=== PATIENT | male | born 1980 | race American Indian/Alaskan Native ===

== ENCOUNTER 2018-11-09 09:58 | Emergency (ER) | payer SELFPAY ==
[2018-11-09 10:09] VITALS: BP 137/85
[2018-11-09] MEDS ORDERED: ULTRAM PO ONE (10:36)
--- NOTE | 2018-11-09 10:41 | Emergency Department Report ---
ED General Adult HPI - General Chief complaint: Back Pain/Injury Stated complaint: BACK PAIN Time Seen by Provider: 11/09/18 10:14 Source: patient Mode of arrival: Ambulatory Limitations: No Limitations - History of Present Illness Initial comments: Patient presents immersed for the chief complaint of lower back pain. Patient states that his pain started after lifting a heavy object at work and umbilical August. Since that time he is followed up with occupational health at [facility] and went through physical therapy and had MRI done on 10/08/2019 and was cleared for work. His MRI showed that he had a pre-existing condition of his back thus he was released from therapy. Patient denies any issues with his bladder or stool. Patient is here because he needs some pain relief. -: Gradual Location: back Radiation: non-radiation Severity scale (0 -10): 5 Quality: aching Consistency: constant Improves with: none Worsens with: none Associated Symptoms: denies other symptoms Treatments Prior to Arrival: none - Related Data Previous Rx's Medication Instructions Recorded Last Taken Type Ibuprofen [Motrin] 800 mg PO Q8HR PRN #24 tablet 11/09/18 Unknown Rx Prednisone [predniSONE 10 mg 10 mg PO .TAPER #1 tab.ds.pk 11/09/18 Unknown Rx (6-Day Pack, 21 Tabs)] traMADol [Ultram] 50 mg PO Q6HR PRN #24 tablet 11/09/18 Unknown Rx Allergies Allergy/AdvReac Type Severity Reaction Status Date / Time No Known Allergies Allergy Unverified 11/09/18 10:09 ED Review of Systems ROS: Stated complaint: BACK PAIN Other details as noted in HPI Comment: All other systems reviewed and negative Constitutional: denies: chills, fever Eyes: denies: eye pain, eye discharge, vision change ENT: denies: ear pain, throat pain Respiratory: denies: cough, shortness of breath, wheezing Cardiovascular: denies: chest pain, palpitations Endocrine: no symptoms reported Gastrointestinal: denies: abdominal pain, nausea, diarrhea Genitourinary: denies: urgency, dysuria Musculoskeletal: back pain. denies: joint swelling, arthralgia Skin: denies: rash, lesions Neurological: denies: headache, weakness, paresthesias Psychiatric: denies: anxiety, depression Hematological/Lymphatic: denies: easy bleeding, easy bruising ED Past Medical Hx - Past Medical History Previous Medical History?: No - Surgical History Past Surgical History?: No - Social History Smoking Status: Never Smoker Substance Use Type: None - Medications Home Medications: Home Medications Medication Instructions Recorded Confirmed Last Taken Type Ibuprofen [Motrin] 800 mg PO Q8HR PRN #24 tablet 11/09/18 Unknown Rx Prednisone [predniSONE 10 mg 10 mg PO .TAPER #1 tab.ds.pk 11/09/18 Unknown Rx (6-Day Pack, 21 Tabs)] traMADol [Ultram] 50 mg PO Q6HR PRN #24 tablet 11/09/18 Unknown Rx ED Physical Exam - General Limitations: No Limitations General appearance: alert, in no apparent distress - Head Head exam: Present: atraumatic, normocephalic - Eye Eye exam: Present: normal appearance - ENT ENT exam: Present: mucous membranes moist - Neck Neck exam: Present: normal inspection - Respiratory Respiratory exam: Present: normal lung sounds bilaterally. Absent: respiratory distress - Cardiovascular Cardiovascular Exam: Present: regular rate, normal rhythm. Absent: systolic murmur, diastolic murmur, rubs, gallop - GI/Abdominal GI/Abdominal exam: Present: soft, normal bowel sounds. Absent: distended, tenderness - Rectal Rectal exam: Present: deferred - Extremities Exam Extremities exam: Present: normal inspection - Back Exam Back exam: Present: normal inspection, other (patient has paraspinal tenderness to the lumbar and thoracic region) - Neurological Exam Neurological exam: Present: alert, oriented X3, CN II-XII intact. Absent: motor sensory deficit - Psychiatric Psychiatric exam: Present: normal affect, normal mood - Skin Skin exam: Present: warm, dry, intact, normal color. Absent: rash ED Course Vital Signs 11/09/18 10:06 Temperature 98.2 F Pulse Rate 86 Respiratory 16 Rate Blood Pressure 137/85 O2 Sat by Pulse 100 Oximetry ED Medical Decision Making - Medical Decision Making Discussed plan of care with patient Critical care attestation.: If time is entered above; I have spent that time in minutes in the direct care of this critically ill patient, excluding procedure time. ED Disposition Clinical Impression: Lower back pain Disposition: DC-01 TO HOME OR SELFCARE Is pt being admited?: No Does the pt Need Aspirin: No Condition: Stable Instructions: Low Back Strain (ED) Additional Instructions: return if worse Prescriptions: Ibuprofen [Motrin] 800 mg PO Q8HR PRN #24 tablet PRN Reason: pain Prednisone [predniSONE 10 mg (6-Day Pack, 21 Tabs)] 10 mg PO .TAPER #1 tab.ds.pk traMADol [Ultram] 50 mg PO Q6HR PRN #24 tablet PRN Reason: Pain Referrals: [facility] [Provider Group] - 3-5 Days [facility] [Provider Group] - 3-5 Days Time of Disposition: 10:40
== END 2018-11-09 10:55 | disposition home or self-care (01) ==
LOC: ED 09:58
DX: M54.5 Low back pain (principal); X50.0XXA Overexertion from strenuous movement or load, initial encounter; Y93.89 Activity, other specified; Y92.69 Other specified industrial and construction area as the place of occurrence of the external cause; Y99.8 Other external cause status
CPT/HCPCS: 99282

== ENCOUNTER 2019-02-15 08:47 | Emergency (ER) | payer OTHER ==
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
[2019-02-15] MEDS ORDERED: NORCO 5/325 PO ONE (11:51)
--- NOTE | 2019-02-15 12:20 | XRay Report ---
LUMBOSACRAL SPINE, 3 VIEWS: History: Low back pain Findings: The vertebral bodies, disk spaces and posterior elements are intact. No compression deformity or malalignment. The SI joints are symmetric and unremarkable. [id number] degenerative disc disease and facet arthropathy are identified at all levels. Impression: Mild multilevel lumbar spondylosis. No acute process is noted.
[2019-02-15 13:20] LABS: Mucus,Urine FEW /HPF
[2019-02-15 13:28] LABS: Bilirubin,Urine NEG (Negative); Blood,Urine NEG (Negative); Color,Urine Yellow (Yellow); Protein,Urine <15 mg/dL mg/dL (Negative); Urobilinogen,Urine < 2.0 mg/dL (<2.0)
[2019-02-15 13:58] VITALS: BP 131/84
== END 2019-02-15 13:45 | disposition home or self-care (01) ==
LOC: ED 08:47
DX: M54.5 Low back pain (principal); V89.2XXA Person injured in unspecified motor-vehicle accident, traffic, initial encounter; Y93.89 Activity, other specified; Y92.89 Other specified places as the place of occurrence of the external cause; Y99.8 Other external cause status
CPT/HCPCS: 72100; 81001

== ENCOUNTER 2019-09-26 04:32 | Emergency (ER) | payer OTHER ==
--- NOTE | 2019-09-26 05:07 | XRay Report ---
EXAMINATION: Left knee radiograph, 3 views, 09/26/2019 CLINICAL INFORMATION: Left knee pain and swelling COMPARISON: None. FINDINGS: Mild bony degenerative changes of the left knee are noted without evidence of acute fractur e or focal soft tissue swelling. Signer Name: Monika Aguilar MD Signed: 09/26/2019 5:03 AM Workstation Name: [id number]
[2019-09-26] MEDS ORDERED: predniSONE 20 MG TAB PO ONE (06:37)
[2019-09-26] MEDS ORDERED: ACETAMINOPHEN W/CODEINE 300-30 MG TAB PO ONE (06:37)
[2019-09-26] MEDS ORDERED: IBUPROFEN 800 MG TAB PO ONE (06:37)
[2019-09-26] MEDS ORDERED: methylPREDNISolone ACETATE 80 MG/1 ML INJ IM ONE (07:16)
--- NOTE | 2019-09-26 07:20 | Emergency Department Report ---
ED Extremity Problem HPI - General Chief complaint: Extremity Problem,Nontraumatic Stated complaint: LT KNEE SWELLING W/PAIN Time Seen by Provider: 09/26/19 07:08 Source: patient Mode of arrival: Wheelchair Limitations: No Limitations - History of Present Illness Initial comments: co l knee pain for 1 day. no trauma. hurts to just touch the knee with finger or sheet. no hx gout. ambulatory but with pain. requesting work note. no home meds. Location: left History of Same: No Severity scale (0 -10): 10 Consistency: constant Improves with: immobilization Worsens with: weight bearing, walking Associated Symptoms: denies other symptoms - Related Data Previous Rx's Medication Instructions Recorded Last Taken Type Colchicine 0.6 mg PO DAILY #11 capsule 09/26/19 Unknown Rx Ibuprofen [Motrin] 800 mg PO Q8HR PRN #30 tablet 09/26/19 Unknown Rx predniSONE [Deltasone] 20 mg PO DAILY #5 tablet 09/26/19 Unknown Rx Allergies Allergy/AdvReac Type Severity Reaction Status Date / Time No Known Allergies Allergy Unverified 11/09/18 10:09 ED Review of Systems ROS: Stated complaint: LT KNEE SWELLING W/PAIN Other details as noted in HPI Comment: All other systems reviewed and negative ED Past Medical Hx - Past Medical History Previous Medical History?: No - Surgical History Past Surgical History?: No - Family History Family history: no significant - Social History Smoking Status: Current Every Day Smoker - Medications Home Medications: Home Medications Medication Instructions Recorded Confirmed Last Taken Type Colchicine 0.6 mg PO DAILY #11 capsule 09/26/19 Unknown Rx Ibuprofen [Motrin] 800 mg PO Q8HR PRN #30 tablet 09/26/19 Unknown Rx predniSONE [Deltasone] 20 mg PO DAILY #5 tablet 09/26/19 Unknown Rx ED Physical Exam - General Limitations: No Limitations General appearance: alert, in no apparent distress - Head Head exam: Present: atraumatic, normocephalic - Eye Eye exam: Present: normal appearance - ENT ENT exam: Present: mucous membranes moist - Neck Neck exam: Present: normal inspection - Respiratory Respiratory exam: Present: normal lung sounds bilaterally. Absent: respiratory distress - Cardiovascular Cardiovascular Exam: Present: regular rate, normal rhythm. Absent: systolic murmur, diastolic murmur, rubs, gallop - GI/Abdominal GI/Abdominal exam: Present: soft, normal bowel sounds - Rectal Rectal exam: Present: deferred - Extremities Exam Extremities exam: Present: normal inspection - Expanded Lower Extremity Exam Left Upper Leg exam: Present: normal inspection Knee exam: Present: full ROM, tenderness, swelling, full knee extension. Absent: abrasion, laceration, ecchymosis, deformity, crepidus, dislocation, erythema, effusion, pain w/ pronation/supination, posterior draw sign, pain/laxity with valgus, pain/laxity with varus Lower Leg exam: Present: normal inspection - Back Exam Back exam: Present: normal inspection - Neurological Exam Neurological exam: Present: alert, oriented X3 - Psychiatric Psychiatric exam: Present: normal affect, normal mood - Skin Skin exam: Present: warm, dry, intact, normal color. Absent: rash ED Course Vital Signs 09/26/19 09/26/19 09/26/19 04:36 06:48 06:49 Temperature 98.3 F Pulse Rate 80 Respiratory 18 18 18 Rate Blood Pressure 132/69 O2 Sat by Pulse 94 Oximetry ED Medical Decision Making - Radiology Data Radiology results: report reviewed, image reviewed - Medical Decision Making xray neg clinical exam consistent with gout severe pain with just sheet touching leg no effusion full rom no trauma will treat for gout symptoms and have follow up with pcp medicated in er dc home w family Vital Signs 09/26/19 09/26/19 09/26/19 04:36 06:48 06:49 Temperature 98.3 F Pulse Rate 80 Respiratory 18 18 18 Rate Blood Pressure 132/69 O2 Sat by Pulse 94 Oximetry Critical care attestation.: If time is entered above; I have spent that time in minutes in the direct care of this critically ill patient, excluding procedure time. ED Disposition Clinical Impression: Knee pain Disposition: DC-01 TO HOME OR SELFCARE Is pt being admited?: No Does the pt Need Aspirin: No Condition: Stable Instructions: Acute Gouty Arthritis (ED) Prescriptions: Colchicine 0.6 mg PO DAILY #11 capsule predniSONE [Deltasone] 20 mg PO DAILY #5 tablet Ibuprofen [Motrin] 800 mg PO Q8HR PRN #30 tablet PRN Reason: Pain, Moderate (4-6) Referrals: [facility] [Outside] - 3-5 Days Forms: Work/School Release Form(ED) Time of Disposition: 07:18
[2019-09-26 07:36] VITALS: BP 130/67
== END 2019-09-26 07:35 | disposition home or self-care (01) ==
LOC: ED 04:32
DX: M25.562 Pain in left knee (principal); F17.200 Nicotine dependence, unspecified, uncomplicated; Z79.899 Other long term (current) drug therapy
CPT/HCPCS: 73562; 96372; 99283; J1040; J7512

== ENCOUNTER 2019-10-18 23:30 | Emergency (ER) | payer OTHER ==
[2019-10-19] MEDS ORDERED: ACETAMINOPHEN 325 MG TAB PO ONE (03:05)
[2019-10-19] MEDS ORDERED: ACETAMINOPHEN 325 MG TAB ONE (03:20)
[2019-10-19 04:07] VITALS: BP 116/68
--- NOTE | 2019-10-19 04:49 | Emergency Department Report ---
ED Lower Extremity HPI - General Chief Complaint: Extremity Problem,Nontraumatic Stated Complaint: GOUT Time Seen by Provider: 10/19/19 04:33 Source: patient Mode of arrival: Ambulatory Limitations: No Limitations - History of Present Illness Initial Comments: This is a 39-year-old -[place] Citizen male who presents to the emergency room with right great toe swelling and pain for 1 day. Past medical history of gout and chronic low back pain. Patient reports pain is worse with weightbearing or movement and achy in intensity. Patient states he usually eat cherries to improve symptoms with no improvement this time. He denies recent injury, numbness or tingling, weakness, or bruising. Complaint: foot injury (right) Onset/Timin -: days(s) Injury: Toes: Right (1st) Place: home Severity: severe Severity scale (0 -10): 10 Improves With: nothing Worsens With: weight bearing, movement Associated Symptoms: swelling, able to partially bear weight, ambulatory. denies: numbness, tingling, unable to bear weight - Related Data Previous Rx's Medication Instructions Recorded Last Taken Type predniSONE [Deltasone] 20 mg PO DAILY #5 tablet 09/26/19 Unknown Rx Colchicine 0.6 mg PO DAILY #11 capsule 10/19/19 Unknown Rx Ibuprofen [Motrin 800 MG tab] 800 mg PO Q8HR PRN #30 tablet 10/19/19 Unknown Rx Allergies Allergy/AdvReac Type Severity Reaction Status Date / Time No Known Allergies Allergy Unverified 11/09/18 10:09 ED Review of Systems ROS: Stated complaint: GOUT Other details as noted in HPI Constitutional: denies: chills, fever Respiratory: denies: cough, shortness of breath, wheezing Cardiovascular: denies: chest pain, palpitations Gastrointestinal: denies: abdominal pain, nausea, diarrhea Musculoskeletal: arthralgia (right first toe). denies: back pain, joint swelling Skin: denies: rash, lesions Neurological: denies: headache, weakness, paresthesias Psychiatric: denies: anxiety, depression ED Past Medical Hx - Past Medical History Previous Medical History?: Yes Additional medical history: gout. "spinal cord problems" - Surgical History Past Surgical History?: No - Social History Smoking Status: Current Every Day Smoker - Medications Home Medications: Home Medications Medication Instructions Recorded Confirmed Last Taken Type predniSONE [Deltasone] 20 mg PO DAILY #5 tablet 09/26/19 Unknown Rx Colchicine 0.6 mg PO DAILY #11 capsule 10/19/19 Unknown Rx Ibuprofen [Motrin 800 MG tab] 800 mg PO Q8HR PRN #30 tablet 10/19/19 Unknown Rx ED Physical Exam - General Limitations: No Limitations General appearance: alert, in no apparent distress, obese - Respiratory Respiratory exam: Present: normal lung sounds bilaterally. Absent: respiratory distress - Cardiovascular Cardiovascular Exam: Present: regular rate, normal rhythm. Absent: systolic murmur, diastolic murmur, rubs, gallop - GI/Abdominal GI/Abdominal exam: Present: soft, normal bowel sounds - Expanded Lower Extremity Exam Right Knee exam: Present: normal inspection, full ROM Lower Leg exam: Present: normal inspection, full ROM Ankle exam: Present: normal inspection, full ROM Foot/Toe exam: Present: full ROM, tenderness (1st distal phalanx TTP and swelling), swelling. Absent: abrasion, laceration, deformity, crepidus, dislocation, erythema, puncture wound, tenderness at base of 5th metatarsal Neuro vascular tendon exam: Present: no vascular compromise Gait: Positive: observed and limited by pain - Neurological Exam Neurological exam: Present: alert, oriented X3, normal gait - Psychiatric Psychiatric exam: Present: normal affect, normal mood - Skin Skin exam: Present: warm, dry, intact, normal color. Absent: rash ED Course Vital Signs 10/19/19 10/19/19 10/19/19 00:41 03:15 04:06 Temperature 98.4 F Pulse Rate 78 88 Respiratory 20 18 20 Rate Blood Pressure 110/54 Blood Pressure 116/68 [Right] O2 Sat by Pulse 96 98 Oximetry ED Lower Extremity MDM - Medical Decision Making This is a 39 y.o. male that presents with swelling and pain with movement of right great toe for 1 day. Past medical history of gout and chronic low back pain. Patient is stable and examined by me. No acute signs of distress noted. Denies recent injury. Given dexamethasone and Tylenol for gout. Discussed plan to start colchicine and ibuprofen with patient. Educated patient on low purine diet and given handout. Patient agrees to ED plan of care. Discharged home and follow up with PCP in 3 days. Critical care attestation.: If time is entered above; I have spent that time in minutes in the direct care of this critically ill patient, excluding procedure time. ED Disposition Clinical Impression: Great toe pain Qualifiers: Laterality: right Qualified Code(s): M79.674 - Pain in right toe(s) Gout attack Qualifiers: Gout site: toe Gout etiology: idiopathic Laterality: right Qualified Code(s): M10.071 - Idiopathic gout, right ankle and foot Disposition: TO HOME OR SELFCARE Is pt being admited?: No Condition: Stable Instructions: Acute Gouty Arthritis (ED), Low Purine Diet (ED) Additional Instructions: Avoid foods that have a high purine content such as alcohol, organ meats, and seafood can cause higher risk of elevated uric acid and gout. Reduce intake of alcohol, especially beer, lowers the risk of gout. Reduce the intake of vegetables high in purines such as asparagus, spinach, and mushrooms. Dairy products reduce the risk of gout. Follow up with primary care provider in 2-3 days. Prescriptions: Colchicine 0.6 mg PO DAILY #11 capsule Ibuprofen [Motrin 800 MG tab] 800 mg PO Q8HR PRN #30 tablet PRN Reason: Pain, Moderate (4-6) Referrals: [facility] [Provider Group] - 3-5 Days SHAKILA ONOFRE MD [Staff Physician] - 3-5 Days [facility] [Provider Group[facility] - 3-5 Days Forms: Work/School Release Form(ED) Time of Disposition: 04:53
[2019-10-19] MEDS ORDERED: dexAMETHasone 4 MG/ML VIAL IM ONE (04:54)
== END 2019-10-19 05:13 | disposition home or self-care (01) ==
LOC: ED 23:30
DX: M10.9 Gout, unspecified (principal); F17.200 Nicotine dependence, unspecified, uncomplicated; Z98.890 Other specified postprocedural states
CPT/HCPCS: 96372; 99282; J1100